=== PATIENT | female | born 1985 | race Caucasian/White ===

== ENCOUNTER 2017-04-11 22:41 | Inpatient (IN) | payer MEDICAID ==
[~2017-04-11] VITALS: Ht 154.9 cm; Wt 113.3 kg
[~2017-04-11 22:41] MED LIST: DIVA500T2 PO; HYDR1TAB16 PO; PRED20TA PO; PRED5TAB19 PO; PREG75CA PO
[2017-04-12] MEDS ORDERED: SODIUM CHLORIDE 0.9% 1,000ML IVBOLUS ONE (00:30)
[2017-04-12] MEDS ORDERED: ONDANSETRON 2MG/ML, 2ML IVPush ONE ×2 (00:30→02:30)
[2017-04-12] MEDS ORDERED: SODIUM CHLORIDE FLUSH 10ML SYR IVF ONE (00:30)
[2017-04-12] MEDS ORDERED: HYDROmorphone 2 MG/ML, 1ML ONE ×2 (00:31→03:32)
[2017-04-12] MEDS ORDERED: ONDANSETRON 2MG/ML, 2ML ONE ×2 (00:32→02:31)
[2017-04-12] MEDS: HYDROmorphone 1 MG/ML, 1ML IVPush PRN ×2 (00:37→01:54)
[2017-04-12 00:49] LABS: ALANINE AMINOTRANSFERASE 28 U/L (12-78); ALBUMIN 3.6 g/dL (3.4-5.0); ANION GAP 10 mmol/L (5-15); BASOPHILS # (AUTO) 0.05 x10^3/uL (0-0.1); BASOPHILS % (AUTO) 0 % (0-1); CALCIUM 9.2 mg/dL (8.5-10.1); CHLORIDE 106 mmol/L (98-107); CREATININE 0.95 mg/dL (0.55-1.02); EOSINOPHILS # (AUTO) 0.31 x10^3/uL (0-0.4); EOSINOPHILS % (AUTO) 2 % (1-7); LYMPHOCYTES # (AUTO) 3.41 x10^3/uL (1-3.4); LYMPHOCYTES % (AUTO) 21 % (22-44); MD NO; MEAN CORPUSCULAR HEMOGLOBIN 30.7 pg (27.0-34.8); MEAN CORPUSCULAR HGB CONC 33.4 g/dL (32.4-35.8); MEAN CORPUSCULAR VOLUME 91.9 fL (80-100); MEAN PLATELET VOLUME 6.6 fL (7.4-10.4); MONOCYTES % (AUTO) 4 % (2-9); NEUTROPHILS # (AUTO) 12.02 x10^3/uL (1.8-6.8); NEUTROPHILS % (AUTO) 73 % (42-75); PLATELET COUNT 355 x10^3/uL (130-400); RED BLOOD COUNT 4.35 x10^6/uL (3.82-5.3); RED CELL DISTRIBUTION WIDTH 13.6 % (9.6-15.2)
[2017-04-12 00:54] LABS: ALKALINE PHOSPHATASE 114 U/L (45-117); BILIRUBIN,TOTAL 0.5 mg/dL (0.2-1.0); TOTAL PROTEIN 8.2 g/dL (6.4-8.2)
[2017-04-12] MEDS ORDERED: PANTOPRAZOLE 40 MG IV IVPush SCH (02:30)
[2017-04-12] MEDS ORDERED: SUCRALFATE 1 GM TABLET PO SCH (02:30)
[2017-04-12] MEDS ORDERED: MAALOX/HYOSCYAMINE/LIDOCAINE 45 ML BTL PO ONE ×2 (02:30→08:00)
[2017-04-12] MEDS ORDERED: PANTOPRAZOLE 40 MG IV ONE (02:31)
[2017-04-12] MEDS ORDERED: MAALOX/HYOSCYAMINE/LIDOCAINE 45 ML BTL ONE (02:31)
[2017-04-12 02:36] LABS: MICROSCOPIC NOT IND
[2017-04-12 02:37] LABS: CULTURE INDICATED? NO; HCG UR SG > 1.045 (1.003-1.030)
[2017-04-12] MEDS ORDERED: HYDROmorphone 1 MG/ML, 1ML IV ONE (03:30)
[2017-04-12] MEDS ORDERED: PROMETHAZINE 25 MG/ML, 1ML IM ONE (03:30)
[2017-04-12] MEDS ORDERED: PROMETHAZINE 25 MG/ML, 1ML ONE (03:31)
[2017-04-12 04:03] VITALS: BP 131/99
[2017-04-12] MEDS ORDERED: OMNIPAQUE 350 MG/ML, 100ML BOTTLE ONE (05:25)
[2017-04-12] MEDS ORDERED: D5%-0.45NACL+KCL 20MEQ 1,000 ML IV SCH (05:36)
[2017-04-12] MEDS ORDERED: MORPHINE SULFATE 4 MG/ML, 1ML ONE (05:47)
[2017-04-12] MEDS: morphine SULFATE 10 MG/ML, 1ML IVPush PRN ×2 (05:50→07:16)
[2017-04-12] MEDS ORDERED: LABETALOL 5MG/ML, 20ML IVPush PRN (06:00)
[2017-04-12] MEDS ORDERED: TRAZODONE 50MG TABLET PO PRN (06:00)
[2017-04-12] MEDS ORDERED: HYDROcodone/APAP 5/325 TABLET PO PRN (06:00)
[2017-04-12] MEDS ORDERED: ONDANSETRON 2MG/ML, 2ML IVPush PRN (06:00)
[2017-04-12] MEDS ORDERED: ONDANSETRON ODT 4 MG PO PRN (06:00)
[2017-04-12 06:49] LABS: BASOPHILS # (AUTO) 0.05 x10^3/uL (0-0.1); BASOPHILS % (AUTO) 0 % (0-1); EOSINOPHILS # (AUTO) 0.14 x10^3/uL (0-0.4); EOSINOPHILS % (AUTO) 1 % (1-7); LYMPHOCYTES # (AUTO) 1.65 x10^3/uL (1-3.4); LYMPHOCYTES % (AUTO) 11 % (22-44); MD NO; MEAN CORPUSCULAR HEMOGLOBIN 31.2 pg (27.0-34.8); MEAN CORPUSCULAR VOLUME 91.6 fL (80-100); MEAN PLATELET VOLUME 6.5 fL (7.4-10.4); MONOCYTES % (AUTO) 3 % (2-9); NEUTROPHILS # (AUTO) 12.41 x10^3/uL (1.8-6.8); NEUTROPHILS % (AUTO) 85 % (42-75); PLATELET COUNT 322 x10^3/uL (130-400); RED BLOOD COUNT 3.94 x10^6/uL (3.82-5.3); RED CELL DISTRIBUTION WIDTH 13.1 % (9.6-15.2)
[2017-04-12 07:27] LABS: HCT (SEDRATE) 36.1 % (34.6-47.8)
[2017-04-12 07:51] VITALS: BP 134/93
[2017-04-12] MEDS ORDERED: PREGABALIN 75 MG CAPSULE PO SCH (09:00)
[2017-04-12] MEDS ORDERED: DIVALPROEX 500 MG TABLET.DR PO SCH (09:00)
[2017-04-12] MEDS ORDERED: FAMOTIDINE 20 MG/2 ML IVPush SCH (09:00)
[2017-04-12] MEDS ORDERED: SUCRALFATE 1 GM/10 ML UDC PO SCH (11:00)
== END 2017-04-12 11:03 | disposition left against medical advice (07) | DRG 392 ==
LOC: ED 04-12 04:50 → 3NW 04-12 04:53
PROVIDERS: ADMIT Internal Medicine; ATTEND Internal Medicine
DX: R11.2 Nausea with vomiting, unspecified (principal); D72.829 Elevated white blood cell count, unspecified; E86.0 Dehydration; R10.9 Unspecified abdominal pain; E66.9 Obesity, unspecified; I10 Essential (primary) hypertension; K58.9 Irritable bowel syndrome, unspecified; M79.7 Fibromyalgia; G89.29 Other chronic pain; G40.909 Epilepsy, unspecified, not intractable, without status epilepticus; G43.909 Migraine, unspecified, not intractable, without status migrainosus; Z53.21 Procedure and treatment not carried out due to patient leaving prior to being seen by health care provider; Z90.49 Acquired absence of other specified parts of digestive tract; Z76.5 Malingerer [conscious simulation]; Z90.710 Acquired absence of both cervix and uterus
CPT/HCPCS: 36415; 74177; 80053; 81003; 81025; 83690; 84703; 85025; 85651; 86140; 96361; 96372; 96374; 96375; 96376; J1170; J2405; J2550; Q9967; C9113; J2270; J3480; J7030